=== PATIENT | female | born 1950 | race Caucasian/White ===

== ENCOUNTER 2020-07-12 13:37 | Inpatient (IN) ==
[2020-07-12 15:28] LABS: ABS Eosinophils 0.1 10^3/ul (0-0.6); ABS Lymphocytes 0.6 10^3/ul (1.0-4.8); ABS Monocytes 0.7 10^3/ul (0-0.8); ABS Neutrophils 8.4 10^3/ul (1.5-7.7); Eosinophil % 0.8 %; Hematocrit 34 % (35-47); Hemoglobin 11.4 g/dL (12.0-16.0); Lymphocyte % 6.3 %; Mean Corpuscular HGB Conc 34 g/dL (31-36); Mean Corpuscular Hemoglobin 33 pg (27-31); Mean Corpuscular Volume 98 fL (80-97); Mean Platelet Volume 8.4 fL (7.4-10.4); Platelet Count 279 10^3/uL (150-450); Red Blood Count 3.44 10^6 /uL (3.70-4.87); Red Cell Distribution Width 14 % (10-15); White Blood Count 9.7 10^3/uL (3.5-10.8)
[2020-07-12 15:33] LABS: Urine Appearance Cloudy; Urine Bilirubin Negative (Negative); Urine Blood 3+ (Negative); Urine Color Yellow; Urine Glucose Negative (Negative); Urine Ketones Negative (Negative); Urine Nitrite Positive (Negative); Urine Protein Negative (Negative); Urine Specific Gravity 1.008 (1.010-1.030); Urine Urobilinogen Negative (Negative)
[2020-07-12 15:36] LABS: Activated Partial Thrombo Time 33.1 seconds (26.0-38.0); INR 1.34 (0.82-1.09)
[2020-07-12 15:38] LABS: Urine Bacteria Absent (Absent); Urine Red Blood Cell 3+(>10/hpf) (Absent); Urine Squamous Epithelial Cell Present (Absent); Urine White Blood Cell 3+(>20/hpf) (Absent)
[2020-07-12] MEDS ORDERED: Ciprofloxacin 400mg IVPREMIX 400 MG/200 ML BAG IVPB ONE (15:43)
[2020-07-12 15:53] LABS: Influenza A Molecular Negative (Negative); Influenza B Molecular Negative (Negative)
[2020-07-12 16:02] LABS: ALT 10 U/L (7-52); AST 11 U/L (13-39); Albumin 3.7 g/dL (3.2-5.2); Albumin/Globulin Ratio 1.1 (1-3); Alkaline Phosphatase 54 U/L (34-104); Anion Gap 9 mmol/L (2-11); BUN/Creatinine Ratio 22.7 (8-20); Blood Urea Nitrogen 32 mg/dL (6-24); C Reactive Protein 82.85 mg/L (<8.01); CO2 Carbon Dioxide 24 mmol/L (22-32); Chloride 100 mmol/L (101-111); EGFR African American 44.4 (>60); EGFR Non-African American 36.7 (>60); Globulin 3.3 g/dL (2-4); Glucose 78 mg/dL (70-100); Potassium 4.2 mmol/L (3.5-5.0); Sodium 133 mmol/L (135-145)
[2020-07-12 16:03] LABS: LDH 227 U/L (140-271)
[2020-07-12 16:08] LABS: Troponin I 0.03 ng/mL (<0.03)
[2020-07-12 16:22] LABS: Ferritin 46.5 ng/mL (11-307)
[2020-07-12 17:27] LABS: Total Iron Binding Capacity 357 mcg/dL (250-450); Transferrin 255 mg/dL (203-362)
[2020-07-12 17:32] LABS: % Iron Saturation 6 % (15-55); Iron < 20 ug/dL (50-212); Unsaturated Iron Binding < 342 ug/dL
[2020-07-12] MEDS ORDERED: Dextrose 50% Syringe 50 ml 25 GM/50 ML SYRINGE IV PUSH PRN (18:25)
[2020-07-12 19:44] LABS: Troponin I 0.05 ng/mL (<0.03)
[2020-07-12] MEDS ORDERED: cefTRIAXone 1 gm/50 mL NS BAG 1 GM/50 ML BAG IVPB SCH (22:00)
[2020-07-12] MEDS: Simvastatin 20 mg TAB (NF) PO SCH (22:22)
[2020-07-12 23:05] LABS: Troponin I 0.04 ng/mL (<0.03)
[2020-07-13] MEDS ORDERED: cefTRIAXone 1 gm/50 mL NS BAG 1 GM/50 ML BAG IVPB ONE (05:32)
[2020-07-13] MEDS ORDERED: TRAZODONE 200 MG PO SCH (06:00)
[2020-07-13 06:39] LABS: ABS Eosinophils 0.1 10^3/ul (0-0.6); ABS Lymphocytes 0.6 10^3/ul (1.0-4.8); ABS Monocytes 0.7 10^3/ul (0-0.8); ABS Neutrophils 8.6 10^3/ul (1.5-7.7); Hematocrit 32 % (35-47); Hemoglobin 10.9 g/dL (12.0-16.0); Lymphocyte % 5.8 %; Mean Corpuscular HGB Conc 34 g/dL (31-36); Mean Corpuscular Hemoglobin 33 pg (27-31); Mean Corpuscular Volume 98 fL (80-97); Mean Platelet Volume 8.6 fL (7.4-10.4); Platelet Count 253 10^3/uL (150-450); Red Blood Count 3.27 10^6 /uL (3.70-4.87); Red Cell Distribution Width 14 % (10-15)
[2020-07-13 06:57] LABS: BUN/Creatinine Ratio 22.1 (8-20); C Reactive Protein 131.16 mg/L (<8.01); Calcium 8.3 mg/dL (8.6-10.3); EGFR African American 40.1 (>60); EGFR Non-African American 33.1 (>60); Magnesium 1.8 mg/dL (1.9-2.7); Potassium 4.1 mmol/L (3.5-5.0)
[2020-07-13] MEDS: Cholecalciferol (VIT D3) 1,000 unit TAB PO SCH (08:20)
[2020-07-13] MEDS ORDERED: Perflutren Lipid Microsphere 3 ML VIAL ONE (09:38)
[2020-07-13] MEDS ORDERED: Magnesium Sulfate 2 gm BAG 2 GM/50 ML BAG IVPB ONE (13:12)
[2020-07-13] MEDS: cefTRIAXone 2 GM ADDV.VIAL 2 GM in NS 0.9% 100 ml BAG 100 ML IV SCH (21:16)
[2020-07-13] MEDS: Simvastatin 20 mg TAB (NF) PO SCH (21:22)
[2020-07-14 05:41] LABS: ABS Eosinophils 0.1 10^3/ul (0-0.6); ABS Lymphocytes 0.8 10^3/ul (1.0-4.8); ABS Monocytes 0.5 10^3/ul (0-0.8); Eosinophil % 1.4 %; Hematocrit 33 % (35-47); Hemoglobin 11.2 g/dL (12.0-16.0); Mean Corpuscular HGB Conc 34 g/dL (31-36); Mean Corpuscular Hemoglobin 33 pg (27-31); Mean Corpuscular Volume 98 fL (80-97); Mean Platelet Volume 8.2 fL (7.4-10.4); Nucleated Red Blood Cells % 0.1; Platelet Count 239 10^3/uL (150-450); Red Cell Distribution Width 14 % (10-15); White Blood Count 6.3 10^3/uL (3.5-10.8)
[2020-07-14 05:59] LABS: BUN/Creatinine Ratio 21.7 (8-20); C Reactive Protein 166.52 mg/L (<8.01); Calcium 8.5 mg/dL (8.6-10.3); EGFR African American 40.7 (>60); EGFR Non-African American 33.6 (>60); Potassium 4.5 mmol/L (3.5-5.0)
[2020-07-14] MEDS ORDERED: NS 0.9% 1000 ml BAG 1,000 ML IV ONE (07:31)
[2020-07-14] MEDS: Cholecalciferol (VIT D3) 1,000 unit TAB PO SCH (09:03)
[2020-07-14] MEDS: Simvastatin 20 mg TAB (NF) PO SCH (20:25)
[2020-07-14] MEDS: Albuterol/Ipratropium NEB.SOL (2.5/0.5 MG) 3 ML NEB.SOLN INH PRN (20:37)
[2020-07-14] MEDS: cefTRIAXone 2 GM ADDV.VIAL 2 GM in NS 0.9% 100 ml BAG 100 ML IV SCH (21:00)
[2020-07-15 07:11] LABS: ABS Eosinophils 0.2 10^3/ul (0-0.6); ABS Lymphocytes 0.9 10^3/ul (1.0-4.8); ABS Monocytes 0.9 10^3/ul (0-0.8); ABS Neutrophils 6.3 10^3/ul (1.5-7.7); Eosinophil % 2.7 %; Hematocrit 32 % (35-47); Hemoglobin 10.5 g/dL (12.0-16.0); Lymphocyte % 11.3 %; Mean Corpuscular HGB Conc 33 g/dL (31-36); Mean Corpuscular Hemoglobin 33 pg (27-31); Mean Corpuscular Volume 98 fL (80-97); Mean Platelet Volume 8.5 fL (7.4-10.4); Platelet Count 242 10^3/uL (150-450); Red Blood Count 3.22 10^6 /uL (3.70-4.87); Red Cell Distribution Width 14 % (10-15); White Blood Count 8.4 10^3/uL (3.5-10.8)
[2020-07-15 07:41] LABS: BUN/Creatinine Ratio 22.4 (8-20); EGFR African American 43.6 (>60); EGFR Non-African American 36.1 (>60); Potassium 4.7 mmol/L (3.5-5.0)
[2020-07-15] MEDS: Cholecalciferol (VIT D3) 1,000 unit TAB PO SCH (08:26)
[2020-07-15] MEDS: Albuterol/Ipratropium NEB.SOL (2.5/0.5 MG) 3 ML NEB.SOLN INH PRN (14:09)
[2020-07-15] MEDS ORDERED: methylPREDNISolone SOD 40 mg/ml 1 ml VIAL IV ONE (19:05)
[2020-07-15] MEDS: Simvastatin 20 mg TAB (NF) PO SCH (19:27)
[2020-07-15] MEDS: Albuterol/Ipratropium NEB.SOL (2.5/0.5 MG) 3 ML NEB.SOLN INH SCH ×2 (19:47→23:09)
[2020-07-15] MEDS ORDERED: Insulin GLARGINE 100 un/ml 10 ml VIAL SUBCUT SCH (21:00)
[2020-07-15] MEDS: cefTRIAXone 2 GM ADDV.VIAL 2 GM in NS 0.9% 100 ml BAG 100 ML IV SCH (21:36)
[2020-07-16] MEDS: Albuterol/Ipratropium NEB.SOL (2.5/0.5 MG) 3 ML NEB.SOLN INH SCH ×6 (03:27→23:59)
[2020-07-16 05:49] LABS: ABS Lymphocytes 0.6 10^3/ul (1.0-4.8); ABS Monocytes 0.2 10^3/ul (0-0.8); Hematocrit 33 % (35-47); Hemoglobin 10.8 g/dL (12.0-16.0); Lymphocyte % 12.1 %; Mean Corpuscular HGB Conc 33 g/dL (31-36); Mean Corpuscular Hemoglobin 33 pg (27-31); Mean Corpuscular Volume 99 fL (80-97); Mean Platelet Volume 8.3 fL (7.4-10.4); Platelet Count 263 10^3/uL (150-450); Red Cell Distribution Width 14 % (10-15); White Blood Count 4.8 10^3/uL (3.5-10.8)
[2020-07-16 06:04] LABS: BUN/Creatinine Ratio 24.3 (8-20); Calcium 8.1 mg/dL (8.6-10.3); EGFR African American 40.7 (>60); EGFR Non-African American 33.6 (>60)
[2020-07-16 06:05] LABS: Potassium 5.6 mmol/L (3.5-5.0)
[2020-07-16] MEDS ORDERED: Dextrose 50% Syringe 50 ml 25 GM/50 ML SYRINGE IV PUSH PRN (08:07)
[2020-07-16 08:49] LABS: TSH Ultra Thyroid Stim Horm 2.73 mcIU/mL (0.34-5.60)
[2020-07-16 08:49] LABS: Glucose Confirmatory 430 mg/dL (70-100)
[2020-07-16] MEDS: Cholecalciferol (VIT D3) 1,000 unit TAB PO SCH (09:37)
[2020-07-16 13:28] LABS: Calcium 8.2 mg/dL (8.6-10.3); EGFR African American 42.6 (>60); EGFR Non-African American 35.2 (>60); Potassium 4.6 mmol/L (3.5-5.0)
[2020-07-16 13:45] LABS: Glucose Confirmatory 476 mg/dL (70-100)
[2020-07-16 17:39] LABS: Glucose Confirmatory 481 mg/dL (70-100)
[2020-07-16] MEDS ORDERED: Insulin GLARGINE 100 un/ml 10 ml VIAL SUBCUT SCH (21:00)
[2020-07-16] MEDS: cefTRIAXone 2 GM ADDV.VIAL 2 GM in NS 0.9% 100 ml BAG 100 ML IV SCH (21:49)
[2020-07-16] MEDS: Simvastatin 20 mg TAB (NF) PO SCH (21:52)
[2020-07-16 22:22] LABS: Glucose Confirmatory 456 mg/dL (70-100)
[2020-07-17] MEDS: Albuterol/Ipratropium NEB.SOL (2.5/0.5 MG) 3 ML NEB.SOLN INH SCH ×4 (03:00→20:08)
[2020-07-17 06:34] LABS: BUN/Creatinine Ratio 28.9 (8-20); Calcium 8.2 mg/dL (8.6-10.3); EGFR African American 36.7 (>60); EGFR Non-African American 30.4 (>60); Magnesium 2.4 mg/dL (1.9-2.7); Potassium 4.8 mmol/L (3.5-5.0)
[2020-07-17] MEDS ORDERED: NS 0.9% 500 ml BAG 500 ML IV ONE (07:43)
[2020-07-17 08:03] LABS: Glucose Confirmatory 472 mg/dL (70-100)
[2020-07-17] MEDS: Cholecalciferol (VIT D3) 1,000 unit TAB PO SCH (09:19)
[2020-07-17] MEDS ORDERED: Albuterol/Ipratropium NEB.SOL (2.5/0.5 MG) 3 ML NEB.SOLN INH PRN (10:40)
[2020-07-17 12:58] LABS: Glucose Confirmatory 470 mg/dL (70-100)
[2020-07-17] MEDS: Simvastatin 20 mg TAB (NF) PO SCH (20:55)
[2020-07-17] MEDS ORDERED: Insulin GLARGINE 100 un/ml 10 ml VIAL SUBCUT SCH ×2 (21:00)
[2020-07-18] MEDS: Albuterol/Ipratropium NEB.SOL (2.5/0.5 MG) 3 ML NEB.SOLN INH SCH ×3 (00:56→14:08)
[2020-07-18 06:34] LABS: BUN/Creatinine Ratio 31.1 (8-20); Calcium 8.7 mg/dL (8.6-10.3); EGFR African American 47.9 (>60); EGFR Non-African American 39.6 (>60); Potassium 4.9 mmol/L (3.5-5.0)
[2020-07-18] MEDS: Cholecalciferol (VIT D3) 1,000 unit TAB PO SCH (08:57)
[2020-07-18 11:56] VITALS: BP 146/66
[2020-07-18] MEDS ORDERED: Fluticasone Propionate 1 PUFF/50 MCG DISKUS INH ONE (13:35)
== END 2020-07-18 16:26 | disposition home health service (06) | DRG 690 ==
LOC: MED 13:37 → ED 13:37 → MED 20:30 → SUATTDRO 07-13 11:00
PROVIDERS: ADMIT Hospitalist; ATTEND Internal Medicine

== ENCOUNTER 2024-04-30 01:21 | Observation (INO) ==
[2024-04-30 02:08] LABS: ABS Eosinophils 0.1 10^3/uL (0.0-0.5); ABS Lymphocytes 0.3 10^3/uL (1.0-4.8); ABS Monocytes 0.8 10^3/uL (0.0-0.9); ABS Neutrophils 11.2 10^3/uL (1.5-7.6); Eosinophil % 1.1 %; Hematocrit 31.3 % (35-45); Hemoglobin 10.6 g/dL (11.5-14.3); Lymphocyte % 2.3 %; Mean Corpuscular Hemoglobin 33.6 pg (27-33); Mean Corpuscular Volume 98.9 fL (80-97); Mean Platelet Volume 8.7 fL (7.5-11.2); Platelet Count 197 10^3/uL (150-450); Red Blood Count 3.17 10^6/uL (3.63-4.92); Red Cell Distribution Width 13.9 % (12-17); White Blood Count 12.5 10^3/uL (3.8-11.8)
[2024-04-30] MEDS: Heparin DRIP 25,000 UNITS BAG 25,000 UNITS/250 ML BAG IV SCH (02:19)
[2024-04-30 03:19] LABS: Creatinine, Serum 2.6 mg/dL (0.51-0.95); eGFR CKD-EPI 18.6 (>60)
[2024-04-30] MEDS ORDERED: Dextrose 50% Syringe 50 ml 25 GM/50 ML SYRINGE IV PUSH PRN (04:32)
[2024-04-30 05:08] LABS: High Sensitivity Troponin 1 Hr 760 pg/mL (<15)
[2024-04-30] MEDS ORDERED: Sulfur Hexaflouride MICROSPHR 25 MG VIAL IV PRN (05:28)
[2024-04-30 06:27] LABS: ABS Basophils 0.1 10^3/uL (0.0-0.1); ABS Eosinophils 0.1 10^3/uL (0.0-0.5); ABS Lymphocytes 0.5 10^3/uL (1.0-4.8); ABS Monocytes 0.7 10^3/uL (0.0-0.9); ABS Neutrophils 9.6 10^3/uL (1.5-7.6); Eosinophil % 1.1 %; Hematocrit 29.9 % (35-45); Hemoglobin 10.4 g/dL (11.5-14.3); Lymphocyte % 4.2 %; Mean Corpuscular Hemoglobin 34.1 pg (27-33); Mean Corpuscular Hgb Conc 34.7 g/dL (31-36); Mean Corpuscular Volume 98.3 fL (80-97); Platelet Count 197 10^3/uL (150-450); Red Blood Count 3.05 10^6/uL (3.63-4.92); Red Cell Distribution Width 13.7 % (12-17); White Blood Count 10.9 10^3/uL (3.8-11.8)
[2024-04-30 06:32] LABS: Urine Appearance Clear; Urine Bilirubin Negative (Negative); Urine Blood 2+ (Negative); Urine Color Light-Yellow; Urine Glucose Negative (Negative); Urine Ketones Negative (Negative); Urine Nitrite Negative (Negative); Urine Protein Trace (Negative); Urine Specific Gravity 1.009 (1.002-1.030); Urine Urobilinogen Negative (Negative); Urine pH 6.5 (5.0-8.0)
[2024-04-30 07:18] LABS: Urine White Blood Cell 2+(11-20/hpf) (Absent)
[2024-04-30 07:19] LABS: Urine Red Blood Cell 2+(6-10/hpf) (Absent)
[2024-04-30 07:20] LABS: High Sensitivity Troponin 3 Hr 683 pg/mL (<15)
[2024-04-30 07:38] LABS: Creatinine, Serum 2.52 mg/dL (0.51-0.95); Potassium 4.3 mmol/L (3.5-5.0); eGFR CKD-EPI 19.3 (>60)
[2024-04-30 07:39] LABS: Calcium 8.3 mg/dL (8.6-10.3)
[2024-04-30 07:55] LABS: Magnesium 1.9 mg/dL (1.9-2.7)
[2024-04-30] MEDS: NS 0.9% 1000 ml BAG 1,000 ML IV ONE (08:37)
[2024-04-30 08:53] LABS: Osmolality Serum 286 mOsm/kg (275-295)
[2024-04-30 09:41] LABS: Urine Osmo 253 mOsm/kg (150-1150)
[2024-04-30] MEDS: Insulin GLARGINE 100 un/ml 10 ml VIAL SUBCUT SCH ×2 (12:38→21:21)
[2024-04-30] MEDS: Albuterol HFA INHALER 8 gm MDI INH PRN (13:26)
[2024-04-30] MEDS: Nystatin TOP POWDER 15 GM BTL TOPICAL SCH (16:43)
[2024-04-30] MEDS: Lactated Ringers 1000 ml BAG 1,000 ML IV SCH (17:29)
[2024-04-30] MEDS: methylPREDNISolone SOD SUCC 40 mg/ml 1 ml VIAL IV SCH (17:29)
[2024-04-30] MEDS: cefTRIAXone 2 gm/50 mL D5W 2 GM/50 ML BAG IV SCH (23:40)
[2024-05-01] MEDS: Heparin 5000 UNITS/ML 1 mL VIAL IV SCH (07:28)
[2024-05-01] MEDS ORDERED: Zosyn per Pharmacy NOTE FOLLOW UP SCH (08:00)
[2024-05-01] MEDS: Piperacillin/Tazobac 3.375 BAG 3.375 GM/100 ML BAG IV ONE (09:13)
[2024-05-01] MEDS: Polyethylene Glycol 3350 17 GM PACKET PO PRN (09:53)
[2024-05-01 10:18] LABS: ABS Lymphocytes 0.3 10^3/uL (1.0-4.8); ABS Monocytes 0.3 10^3/uL (0.0-0.9); ABS Neutrophils 8.4 10^3/uL (1.5-7.6); Eosinophil % 0.3 %; Hematocrit 30.2 % (35-45); Hemoglobin 10.3 g/dL (11.5-14.3); Lymphocyte % 3.1 %; Mean Corpuscular Hemoglobin 33.6 pg (27-33); Mean Corpuscular Hgb Conc 34.2 g/dL (31-36); Mean Corpuscular Volume 98.1 fL (80-97); Mean Platelet Volume 9.2 fL (7.5-11.2); Platelet Count 197 10^3/uL (150-450); Red Blood Count 3.08 10^6/uL (3.63-4.92); Red Cell Distribution Width 13.6 % (12-17)
[2024-05-01 10:33] LABS: Calcium 8.4 mg/dL (8.6-10.3); Creatinine, Serum 1.92 mg/dL (0.51-0.95); Potassium 4.8 mmol/L (3.5-5.0); eGFR CKD-EPI 26.7 (>60)
[2024-05-01 12:04] LABS: Glucose Confirmatory 425 mg/dL (70-100)
[2024-05-01] MEDS: ZOSYN 3.375 GM Q8H per EXTENDED INFUSION IV SCH (12:48)
[2024-05-01] MEDS: Insulin GLARGINE 100 un/ml 10 ml VIAL SUBCUT ONE (14:43)
[2024-05-01 16:50] LABS: Glucose Confirmatory 464 mg/dL (70-100)
[2024-05-01] MEDS: Insulin GLARGINE 100 un/ml 10 ml VIAL SUBCUT SCH (21:37)
[2024-05-01] MEDS: Albuterol/Ipratropium NEB.SOL (2.5/0.5 MG) 3 ML NEB.SOLN INH PRN (22:03)
[2024-05-02] MEDS: Senna TAB 8.6 mg TAB PO PRN (05:17)
[2024-05-02 05:55] LABS: Hematocrit 30.3 % (35-45); Hemoglobin 10.4 g/dL (11.5-14.3); Mean Corpuscular Hemoglobin 33.8 pg (27-33); Mean Corpuscular Hgb Conc 34.3 g/dL (31-36); Mean Corpuscular Volume 98.5 fL (80-97); Mean Platelet Volume 8.9 fL (7.5-11.2); Platelet Count 211 10^3/uL (150-450); Red Blood Count 3.07 10^6/uL (3.63-4.92); Red Cell Distribution Width 13.8 % (12-17); White Blood Count 10.7 10^3/uL (3.8-11.8)
[2024-05-02 06:15] LABS: Calcium 8.4 mg/dL (8.6-10.3); Creatinine, Serum 1.65 mg/dL (0.51-0.95); Magnesium 2.1 mg/dL (1.9-2.7); Potassium 4.9 mmol/L (3.5-5.0)
[2024-05-02 07:25] LABS: ABS Lymphocytes 0.5 10^3/uL (1.0-4.8); ABS Monocytes 0.7 10^3/uL (0.0-0.9); ABS Neutrophils 9.5 10^3/uL (1.5-7.6); ABS Nucleated RBC 0.01 10^3/ul; Lymphocyte % 4.7 %; Nucleated Red Blood Cells % 0.1 %/100WBC (0.0-0.8); RBC Morphology Normal (Normal); Toxic Granulation 1+
[2024-05-02] MEDS: Magnesium Hydroxide LIQ 30 ML UDC PO SCH (20:11)
[2024-05-02] MEDS: Glycerin ADULT 2.4 gm SUPP PR ONE (20:50)
[2024-05-03] MEDS: ZOSYN 3.375 GM Q8H per EXTENDED INFUSION IV SCH (01:41)
[2024-05-03 06:25] LABS: Hematocrit 33.7 % (35-45); Hemoglobin 11.1 g/dL (11.5-14.3); Mean Corpuscular Hemoglobin 32.4 pg (27-33); Mean Corpuscular Hgb Conc 33.1 g/dL (31-36); Mean Platelet Volume 8.6 fL (7.5-11.2); Platelet Count 271 10^3/uL (150-450); Red Blood Count 3.43 10^6/uL (3.63-4.92); Red Cell Distribution Width 13.9 % (12-17); White Blood Count 11.6 10^3/uL (3.8-11.8)
[2024-05-03 07:15] LABS: Calcium 8.8 mg/dL (8.6-10.3); Creatinine, Serum 1.6 mg/dL (0.51-0.95); Potassium 4.9 mmol/L (3.5-5.0); eGFR CKD-EPI 33.2 (>60)
[2024-05-03 07:39] LABS: ABS Lymphocytes 0.8 10^3/uL (1.0-4.8); ABS Monocytes 0.8 10^3/uL (0.0-0.9); ABS Neutrophils 9.9 10^3/uL (1.5-7.6); ABS Nucleated RBC 0.01 10^3/ul; Nucleated Red Blood Cells % 0.1 %/100WBC (0.0-0.8); RBC Morphology Normal (Normal); Toxic Granulation 1+
[2024-05-03] MEDS: Insulin GLARGINE 100 un/ml 10 ml VIAL SUBCUT SCH (08:07)
[2024-05-03 10:46] VITALS: BP 160/61
[2024-05-03] MEDS: Glycerin ADULT 2.4 gm SUPP PR ONE (12:19)
== END 2024-05-03 13:12 ==
LOC: EDHOLD 01:21 → ED 01:21 → SUATTDRO 03:04 → MEDTELE 08:25
PROVIDERS: ADMIT Student in an Organized Health Care Education/Training Program; ATTEND Internal Medicine